=== PATIENT | male | born 1975 | race Caucasian/White ===

== ENCOUNTER 2018-12-04 09:16 | Emergency (ER) | payer BC ==
[2018-12-04 09:38] VITALS: BP 145/100
--- NOTE | 2018-12-04 09:43 | UC ---
Throat Pain/Nasal Ruddy HPI - HPI Summary HPI Summary: 43 yo male presents with cold symptoms. He tells me that about 1 week ago he developed a fever - did not take his temperature, but felt feverish - with sinus congestion, cough, and sore throat. He took OTC mucinex and ibuprofen and his symptoms resolved, but over the last 2-3 days his cough has worsened and is now productive with yellow/white phlegm. He is a former smoker. He has had no more fevers. Denies SOB, chest pain, rash, n/v - History of Current Complaint Chief Complaint: UCGeneralIllness Stated Complaint: COUGH,CONGESTION Time Seen by Provider: 12/04/18 09:42 Hx Obtained From: Patient Onset/Duration: Gradual Onset Pain Intensity: 0 - Allergies/Home Medications Allergies/Adverse Reactions: Allergies Allergy/AdvReac Type Severity Reaction Status Date / Time No Known Allergies Allergy Verified 12/04/18 09:39 PMH/Surg Hx/FS Hx/Imm Hx - Additional Past Medical History Additional PMH: None - Surgical History Surgical History: None - Social History Alcohol Use: Rare Substance Use Type: None Smoking Status (MU): Former Smoker Length of Time of Smoking/Using Tobacco: 15 years When Did the Patient Quit Smoking/Using Tobacco: 2 years Review of Systems All Other Systems Reviewed And Are Negative: No Constitutional: Positive: Fever - resolved Skin: Positive: Negative Eyes: Positive: Negative ENT: Positive: Negative Respiratory: Positive: Cough Cardiovascular: Positive: Negative Gastrointestinal: Positive: Negative Neurological: Positive: Negative Psychological: Positive: Negative Physical Exam - Summary Physical Exam Summary: GENERAL: NAD. WDWN. No pain distress. SKIN: No rashes, sores, lesions, or open wounds. HEENT: Head: AT/NC Eyes: Conjunctiva clear without inflammation or discharge. Ears: Hearing grossly normal. TMs intact, no bulging, erythema, or edema. Nose: Nasal mucosa pink and moist. NTTP maxillary and frontal sinus. Throat: Posterior oropharynx without exudates, erythema, or tonsillar enlargement. Uvula midline. NECK: Supple. Nontender. No lymphadenopathy. CHEST: Mild wheezing throughout. No r/r. No accessory muscle use. Breathing comfortably and in no distress. CV: RRR. Pulses intact. Cap refill <2seconds NEURO: Alert. PSYCH: Age appropriate behavior. Triage Information Reviewed: Yes Vital Signs: Initial Vital Signs Temp 98.8 F 12/04/18 09:34 Pulse 99 12/04/18 09:34 Resp 18 12/04/18 09:34 BP 145/100 12/04/18 09:34 Pulse Ox 97 12/04/18 09:34 Vital Signs Reviewed: Yes Throat Pain/Nasal Course/Dx - Course Course Of Treatment: Suspect bronchitis. Pt deferred CXR at this time. - Differential Dx/Diagnosis Provider Diagnosis: Bronchitis Discharge ED - Sign-Out/Discharge Documenting (check all that apply): Patient Departure All imaging exams completed and their final reports reviewed: No Studies - Discharge Plan Condition: Stable Disposition: HOME Prescriptions: Albuterol HFA INHALER* [Ventolin HFA Inhaler*] 1 puff INH Q8H PRN #1 mdi PRN Reason: Cough Azithromycin TAB* [Zithromax TAB (Z-ALFREDO) 250 mg #6 tabs] 2 tab PO .TODAY, THEN 1 DAILY #1 alfredo Patient Education Materials: Acute Bronchitis (ED) Referrals: Fercho Parnell MD [Primary Care Provider] - Additional Instructions: If you develop a fever, shortness of breath, chest pain, new or worsening symptoms - please call your PCP or go to the ED immediately. Your blood pressure was high at todays visit. Please see your primary provider within 4 weeks for recheck and re-evaluation. - Billing Disposition and Condition Condition: STABLE Disposition: Home
== END 2018-12-04 09:55 | disposition home or self-care (01) ==
LOC: UCCORT 09:16
DX: J40 Bronchitis, not specified as acute or chronic (principal); J02.9 Acute pharyngitis, unspecified; R09.81 Nasal congestion; Z87.891 Personal history of nicotine dependence
CPT/HCPCS: 99202; G0463